=== PATIENT | male | born 1985 | race Hispanic/Latino ===

== ENCOUNTER 2019-01-11 04:46 | Emergency (ER) | payer SELFPAY ==
[~2019-01-11] VITALS: Ht 177.8 cm; Wt 88.9 kg
[~2019-01-11 04:46] MED LIST: SUBOXONE 8 MG-1 EAC2 PO
[2019-01-11 05:31] LABS: BASOPHILS % 0.3 % (0.0-1.0); EOSINOPHILS # (AUTO) 0.1 (0.0-0.4); EOSINOPHILS % 0.9 % (0.0-6.0); HEMATOCRIT 29.1 % (38.2-49.6); HEMOGLOBIN 8.6 g/dL (14.0-18.0); LYMPHOCYTES # (AUTO) 2.6 (1.0-3.2); LYMPHOCYTES % 32.9 % (18.0-39.1); MEAN CORPUSCULAR HEMOGLOBIN 18.7 pg (28-32); MEAN CORPUSCULAR HGB CONC 29.6 g/dL (31-35); MEAN CORPUSCULAR VOLUME 63.1 fL (81-99); MONOCYTES # (AUTO) 0.5 (0.2-0.8); MONOCYTES % 5.8 % (4.4-11.3); NEUTROPHILS # (AUTO) 4.7 (2.1-6.9); NEUTROPHILS % 59.7 % (38.7-80.0); PLATELET COUNT 544 x10e3/uL (140-360); RED BLOOD COUNT 4.61 x10e6/uL (4.3-5.7)
[2019-01-11 05:33] LABS: CLARITY,URINE CLOUDY (CLEAR); COLOR,URINE YELLOW (YELLOW); KETONES,URINE NEGATIVE (NEGATIVE); LEUKOCYTE ESTERASE ,URINE NEGATIVE (NEGATIVE); NITRITE,URINE NEGATIVE (NEGATIVE); PROTEIN,URINE DIPSTICK NEGATIVE (NEGATIVE)
[2019-01-11 05:34] LABS: AMPHETAMINES SCREEN,URINE NEGATIVE (NEGATIVE); BENZODIAZEPINES SCREEN,URINE NEGATIVE (NEGATIVE); BILIRUBIN,URINE NEGATIVE (NEGATIVE); PHENCYCLIDINE SCREEN,URINE NEGATIVE (NEGATIVE); URINE UROBILINOGEN 0.2 mg/dL (0.2 - 1)
[2019-01-11 05:40] LABS: EPITHELIAL CELLS,URINE FEW /LPF; RBC,URINE 0-5 /HPF (0-5); WBC,URINE (MAN) 0-5 /HPF (0-5)
[2019-01-11 05:49] LABS: ALANINE AMINOTRANSFERASE 28 IU/L (0-55); ALBUMIN 3.4 g/dL (3.5-5.0); ALBUMIN/GLOBULIN RATIO 0.9 (0.8-2.0); ALKALINE PHOSPHATASE 76 IU/L (40-150); AMYLASE 43 U/L (25-125); ANION GAP 14.6 mmol/L (8-16); BLOOD UREA NITROGEN 11 mg/dL (7-26); BUN/CREATININE RATIO 16 (6-25); CALCIUM 9.7 mg/dL (8.4-10.2); CARBON DIOXIDE 24 mmol/L (22-29); CHLORIDE 105 mmol/L (98-107); CREATININE, SERUM 0.67 mg/dL (0.72-1.25); EST GLOMERULAR FILTRATION RATE > 60 ML/MIN (60-); GLUCOSE 114 mg/dL (74-118); LIPASE 35 U/L (8-78); POTASSIUM 3.6 mmol/L (3.5-5.1); SODIUM 140 mmol/L (136-145)
[2019-01-11] MEDS ORDERED: KETOROLAC TROMETHAMINE 30 MG/ML VIAL IV STA (06:05)
[2019-01-11] MEDS ORDERED: SODIUM CHLORIDE 0.9% 50ML 50 ML ONE (06:26)
[2019-01-11] MEDS ORDERED: IOPAMIDOL 370 MG/ML 200 ML INFUS..BTL INJ ONE (06:26)
--- NOTE | 2019-01-11 08:00 | NUR ---
Pt resting comfortably on stretcher. RR even and unlabored. NAD noted. Pt remains on NIBP and pulse ox. Pt denies any pain at the present time. Call light in reach. Bed locked in lowest position. Bed rails up x1. Will continue to monitor.
--- NOTE | 2019-01-11 08:00 | NUR ---
Call placed to Radiology regarding CT report.
--- NOTE | 2019-01-11 08:42 | NUR ---
2nd call regarding CT report.
--- NOTE | 2019-01-11 08:49 | Diagnostic Imaging Report ---
EXAM: CT Abdomen and Pelvis WITH contrast INDICATION: Right upper quadrant pain. COMPARISON: None. TECHNIQUE: Abdomen and pelvis were scanned utilizing a multidetector helical scanner from the lung base to the pubic symphysis after administration of IV contrast. Coronal and sagittal reformations were obtained. Routine protocol was performed. Scan was performed when during portal venous phase. IV CONTRAST: 100 cc Isovue 300 ORAL CONTRAST: Water RADIATION DOSE: Total DLP: 425.95 mGy*cm Estimated effective dose: (DLP x 0.015 x size factor) mSv COMPLICATIONS: None FINDINGS: LINES and TUBES: None. LOWER THORAX: Nodular densities in the left lung base may be inflammatory or infectious in etiology. HEPATOBILIARY: No focal hepatic lesions. No biliary ductal dilation. GALLBLADDER: Mild gallbladder wall edema, however, the gallbladder is normal hypertrophic.. Mildly enlarged adjacent lymph node measures 7 mm in short axis on image 32. There is mild adjacent fat stranding. SPLEEN: No splenomegaly. PANCREAS: No focal masses or ductal dilatation. ADRENALS: No adrenal nodules KIDNEYS/URETERS: Kidneys enhance symmetrically. No hydronephrosis. Tiny hypodensity in the posterior interpolar region of the right kidney too small to be characterized. No stones. GI TRACT: Diffuse thickening of the gastric antrum and first portion of the duodenum suggestive of gastroduodenitis. No abnormal distention to suggest obstruction. There are diverticula in the sigmoid colon without evidence of diverticulitis. Appendix is normal. PELVIC ORGANS/BLADDER: Unremarkable. LYMPH NODES: No lymphadenopathy. VESSELS: Unremarkable. PERITONEUM / RETROPERITONEUM: No free air or fluid. BONES: Multilevel small Schmorl nodes. SOFT TISSUES: Bilateral fat-containing inguinal hernias. IMPRESSION: 1. Findings suggestive of antral gastritis and proximal duodenitis. Recommend endoscopic evaluation. Signed by: Dr. William Joyner M.D. on 01/11/2019 6:49 AM
[2019-01-11] MEDS ORDERED: OMEPRAZOLE40 MG PO (09:14)
[2019-01-11 09:37] VITALS: BP 117/70
[2019-01-11] MEDS ORDERED: BELLADONNA ALK/PHENOBARBITAL 5 ML UDC PO ONE (10:00)
[2019-01-11] MEDS ORDERED: MAGNESIUM/ALUMINUM/SIMETHICONE 30 ML UDC PO ONE (10:30)
[2019-01-11] MEDS ORDERED: LIDOCAINE VISC 2% SOLN 15 ML UDC PO ONE (10:30)
== END 2019-01-11 10:00 | disposition home or self-care (01) ==
LOC: ER 04:46
DX: R10.11 Right upper quadrant pain (principal); D50.0 Iron deficiency anemia secondary to blood loss (chronic)
CPT/HCPCS: 36415; 74177; 80053; 80307; 81001; 82150; 83690; 85025; 96374; 99283; J1885; Q9967